=== PATIENT | male | born 1980 | race Caucasian/White ===

== ENCOUNTER 2023-02-12 06:11 | Day surgery (SDC) | payer OTHER ==
[~2023-02-12] VITALS: Ht 177.8 cm; Wt 92.2 kg
[2023-02-12] MEDS ORDERED: KETAMINE HCL 50 MG/ML 10 ML VIAL IVP ONE (06:12)
[2023-02-12] MEDS ORDERED: LIDOCAINE/PF 2% 5 ML VIAL IM ONE (06:12)
[2023-02-12] MEDS ORDERED: ROCURONIUM BROMIDE 10 MG/ML 5 ML VIAL IVP ONE (06:12)
[2023-02-12] MEDS ORDERED: ONDANSETRON HCL 4 MG/2 ML VIAL IVP ONE (06:12)
[2023-02-12] MEDS ORDERED: SUCCINYLCHOLINE CHLORIDE 20 MG/ML 10 ML VIAL IVP ONE (06:12)
[2023-02-12] MEDS ORDERED: FentaNYL CITRATE PF 100 MCG/2 ML VIAL IVP ONE (06:12)
[2023-02-12] MEDS ORDERED: DEXAMETHASONE SOD PHOS 4 MG/ML VIAL IVP ONE (06:12)
[2023-02-12] MEDS ORDERED: PROPOFOL 1% 20 ML VIAL IVP ONE (06:12)
[2023-02-12] MEDS ORDERED: AMPICILLIN SODIUM 2 GM/NS 100 ML IV ONE (06:16)
[2023-02-12] MEDS ORDERED: RINGERS SOLUTION,LACTATED 0 ML IV ONE (07:32)
[2023-02-12 08:21] LABS: BASOPHILS % (AUTO) 0.3 % (0.0-2.0); EOSINOPHILS % (AUTO) 0.1 % (1.0-6.0); HEMATOCRIT 48.7 % (41-53); HEMOGLOBIN 16.5 g/dL (13.5-17.5); LYMPHOCYTES # (AUTO) 1.4 K/uL (1.0-4.8); LYMPHOCYTES % (AUTO) 12.9 % (22.0-44.0); MEAN CORPUSCULAR HEMOGLOBIN 28.6 pg (26.0-34.0); MEAN CORPUSCULAR HGB CONC 33.9 G/dL (31.0-37.0); MEAN CORPUSCULAR VOLUME 84 fL (80-100); MONOCYTES # (AUTO) 0.6 K/uL (0.1-1.0); MONOCYTES % (AUTO) 5.4 % (2.0-9.0); NEUTROPHILS # (AUTO) 8.8 K/uL (1.8-7.7); NEUTROPHILS % (AUTO) 81.3 % (40.0-70.0); PLATELET COUNT (AUTO) 212 K/uL (150-450); RED BLOOD CELL COUNT(AUTO) 5.77 MIL/uL (4.50-5.90); RED CELL DISTRIBUTION WIDTH 14.2 % (11.5-14.5); WHITE BLOOD COUNT (AUTO) 10.9 K/uL (4.5-11.0)
[2023-02-12 08:27] LABS: ANION GAP 10 mmol/L (8-16); CALCIUM, TOTAL 9.1 mg/dL (8.8-10.5); CARBON DIOXIDE 26 mmol/L (22-29); CHLORIDE 102 mmol/L (98-107); CREATININE 0.76 mg/dL (0.60-1.30); GLOMERULAR FILTR. RATE CALC > 60 mL/min (>60); GLUCOSE,RANDOM 109 mg/dL (70-110); POTASSIUM 3.5 mmol/L (3.5-5.1); SODIUM SERUM 138 mmol/L (136-145); UREA NITROGEN, BLOOD 13 mg/dL (7-18)
[2023-02-12] MEDS ORDERED: RINGERS SOLUTION,LACTATED 1,000 ML IV ONE ×3 (08:29→13:30)
[2023-02-12 08:33] LABS: ALANINE AMINOTRANSFERASE 23 U/L (12-78); ALBUMIN 4.1 g/dL (3.4-5.0); ALKALINE PHOSPHATASE 56 U/L (46-116); ASPARTATE AMINOTRANSFERASE 17 U/L (15-37); BILIRUBIN,TOTAL 0.4 mg/dL (0.1-1.0); TOTAL PROTEIN, SERUM 7.7 g/dL (6.4-8.2)
[2023-02-12 08:34] LABS: PROTHROMBIN TIME 10.8 SEC (9.4-11.6)
[2023-02-12] MEDS ORDERED: ATEN-72 PO (08:43)
[2023-02-12] MEDS ORDERED: LOSA-382 PO (08:43)
[2023-02-12] MEDS ORDERED: FentaNYL CITRATE PF 100 MCG/2 ML VIAL IVP PRN (09:30)
[2023-02-12] MEDS ORDERED: OXYGEN THERAPY IH SCH (20:00)
== END 2023-02-12 11:05 | disposition home or self-care (01) ==
LOC: EDSEX 06:11 → SURGERY 06:11
PROVIDERS: ATTEND Dentist General Practice
DX: K05.30 Chronic periodontitis, unspecified (principal); K03.6 Deposits [accretions] on teeth; I10 Essential (primary) hypertension; Z79.01 Long term (current) use of anticoagulants; Z79.899 Other long term (current) drug therapy; Z98.890 Other specified postprocedural states
CPT/HCPCS: 41899; 71045; 80053; 85025; 85610; 85730; 36415; 93005; J0290; J2704; J1100; J3010; J3490 ×3; J2405; J0330; J7120